=== PATIENT | female | born 1990 | race Caucasian/White ===

== ENCOUNTER 2017-12-13 21:00 | Emergency (ER) | payer OTHER ==
[2017-12-13] MEDS: HYDROCODONE/APAP (5/325) TAB PO (21:38)
[2017-12-13] MEDS: IBUPROFEN 600 MG TAB PO (21:38)
[2017-12-13 23:18] LABS: AMPHETAMINE/METHAMPHETAMINE NEGATIVE (NEGATIVE); BARBITURATES NEGATIVE (NEGATIVE); BENZODIAZEPINES NEGATIVE (NEGATIVE); CANNABINOIDS POSITIVE (NEGATIVE)
[2017-12-13 23:19] LABS: COCAINE NEGATIVE (NEGATIVE); OPIATES POSITIVE (NEGATIVE)
== END 2017-12-13 22:35 | disposition home or self-care (01) ==
LOC: FTE 21:00
DX: M79.602 Pain in left arm (principal); M25.532 Pain in left wrist; J45.909 Unspecified asthma, uncomplicated
CPT/HCPCS: 73080; 73080-LT; 73110-LT; 80307; 99283-25